=== PATIENT | male | born 1980 | race Caucasian/White ===

== ENCOUNTER → 2023-09-28 | Outpatient (CLI) | payer BC | LOC: M RAD 07:00 | PROVIDERS: ATTEND Otolaryngology | DX: H90.A31 Mixed conductive and sensorineural hearing loss, unilateral, right ear with restricted hearing on the contralateral side (principal); H70.12 Chronic mastoiditis, left ear; H74.93 Unspecified disorder of middle ear and mastoid, bilateral ==